=== PATIENT | female | born 1970 | race Caucasian/White ===

== ENCOUNTER → 2017-03-29 16:44 | Outpatient (CLI) | payer MEDICAID, SELFPAY ==
[2017-04-03 12:07] LABS: Alternaria alternata <0.10 kU/L (Class 0); Aspergillus fumigatus <0.10 kU/L (Class 0); Bahia Grass <0.10 kU/L (Class 0); Bermuda Grass <0.10 kU/L (Class 0); Bluegrass, Kentucky <0.10 kU/L (Class 0); Cat Hair/Dander, Standard <0.10 kU/L (Class 0); Cedar, Mountain <0.10 kU/L (Class 0); Cladosporium herbarum <0.10 kU/L (Class 0); Cockroach, American <0.10 kU/L (Class 0); D farinae Mite 6.34 kU/L (Class IV); D pteronyssinus 8.91 kU/L (Class IV); Dog Epithelia <0.10 kU/L (Class 0); Elm, American White <0.10 kU/L (Class 0); Hazelnut Tree <0.10 kU/L (Class 0); Hickory, White <0.10 kU/L (Class 0); Johnson Grass <0.10 kU/L (Class 0); Maple/Box Elder <0.10 kU/L (Class 0); Mucor racemosus <0.10 kU/L (Class 0); Mugwort <0.10 kU/L (Class 0); Mulberry, White <0.10 kU/L (Class 0); Oak, White <0.10 kU/L (Class 0); Penicillium chrysogen <0.10 kU/L (Class 0); Pigweed, Rough <0.10 kU/L (Class 0); Plantain, English <0.10 kU/L (Class 0); Ragweed, Short/Common <0.10 kU/L (Class 0); Sheep Sorrel(Dock) <0.10 kU/L (Class 0); Stemphylium herbarum <0.10 kU/L (Class 0); Sweet Gum <0.10 kU/L (Class 0); Sycamore, American <0.10 kU/L (Class 0)
[2017-04-04 08:50] LABS: Nettle <0.10 kU/L (Class 0)
== END ==
PROVIDERS: Family Provider Family Medicine; PCP Family Medicine; Visit Provider Family Medicine
DX: T78.40XA Allergy, unspecified, initial encounter (principal)
CPT/HCPCS: 36415; 86003

== ENCOUNTER → 2017-05-24 09:59 | Outpatient (CLI) | payer MEDICAID, SELFPAY ==
--- NOTE | 2017-05-24 10:14 | BI_ITS ---
MAMMOGRAPHY - BILATERAL SCREENING REASON FOR EXAM: Female, 46 years old. Routine annual screening examination. PERTINENT HISTORY: Mother with breast cancer. Grandmother with breast cancer. TECHNIQUE: Digital bilateral breast danial (3D mammographic acquisition) in the CC and MLO projections. 2-D mediolateral oblique (MLO) and craniocaudad (CC) views of both breasts were obtained. CAD: Full Field Digital Mammography with Computer Added Detection was performed. COMPARISON: Comparison is made with prior study dated June 26, 2015 and June 06, 2014. FINDINGS: Breast Composition: There are scattered areas of fibroglandular density. There are no dominant masses or suspicious calcifications. Stable benign-appearing left axillary lymph nodes. No other significant abnormalities are identified. There has been no significant change since the prior study. BI/SCREENING MAMM (CAD), BILAT IMPRESSION: Stable bilateral screening mammogram. Yearly follow-up mammogram recommended. (A) ASSESSMENT CATEGORY: BIRADS Category 2: Benign. A letter regarding these results will be sent to the patient by the facility within 30 days. Approximately 10% of breast cancers are not detected by mammography. A normal mammogram should not delay biopsy of a clinically suspicious abnormality. [id number] Electronically Signed: Jeremiah Gill MD at 12:16 EDT Tel [phone], Service support ,
[2017-05-26 13:48] LABS: HPV Reflexed? NOT INDICATED
== END ==
PROVIDERS: Visit Provider Obstetrics & Gynecology
DX: Z12.4 Encounter for screening for malignant neoplasm of cervix (principal); Z12.31 Encounter for screening mammogram for malignant neoplasm of breast
CPT/HCPCS: 77063; 77067; 88175; G0145

== ENCOUNTER → 2018-11-28 12:39 | Outpatient (CLI) | payer OTHER, SELFPAY ==
[2018-11-28 11:26] VITALS: BMI 37.5
[2018-11-28 12:57] LABS: Absolute Lymphocyte Count 2.92 X10^3/uL (0.83-4.51); Absolute Neutrophil Count 4.4 X10^3/uL (2.0-7.7); Basophil# 0.05 X10^3/uL; Basophil% 0.6 % (0-1); Eosinophil# 0.13 X10^3/uL; Eosinophils% 1.6 % (0-5); Hematocrit 43.7 % (37-47); Lymphocyte # 2.92 X10^3/ul (4.0); Lymphocyte % 37.1 % (19-41); Mean Corpuscular Hgb 27.7 pg (27.0-32.0); Mean Corpuscular Volume 86.5 fL (81-99); Mean Platelet Vol. 10.2 fl (6.2-12.0); Monocyte# 0.38 X10^3/uL; Monocyte% 4.8 % (0-10); NRBC Flagged by Analyzer 0 % (0-5); Neutrophil # 4.38 X10^3/uL (2.7-7.7); Neutrophil % 55.6 % (47-70); Platelet Count 256 K/mm3 (150-450); RBC Distribution Width CV 13.9 % (11.6-14.6); RBC Distribution Width SD 44.1 fl (35.1-43.9); Red Blood Count 5.05 M/mm3 (4.2-5.4); White Blood Count 7.9 K/mm3 (4.4-11.0)
[2018-11-28 13:40] LABS: Vitamin D,25 Hydroxy 16.5 ng/mL (29.95-100.01)
[2018-11-28 13:45] LABS: ALB/GLOB Ratio 0.9 RATIO (0.9-2.4); AST(SGOT) 24 U/L (15-37); Alanine Aminotransfer ALT/SGPT 45 U/L (13-56); Albumin, Serum 3.7 g/dL (3.2-5.0); Alkaline Phosphatase 84 U/L (45-117); Anion Gap 5 (5-15); BUN 13 mg/dL (7-18); Calcium,Total 9.1 mg/dL (8.5-10.1); Chloride 108 mmol/L (98-107); Cholesterol 192 mg/dL (200); Creatinine, Serum 0.76 mg/dL (0.55-1.02); EST Glomerular Filtration Rate 86 mL/min (>60); Est Glom Filt Rate - Afr Amer 104 mL/min (>60); Globulin 3.9 g/dL (2.2-4.2); Glucose 81 mg/dL (74-106); High Density Lipoprotein 64 mg/dL; Potassium 3.9 mmol/L (3.5-5.1); Protein, Total 7.6 g/dL (6.4-8.2); Sodium Level 139 mmol/L (136-145); Thyroid Stim Hormone (TSH) 1.36 uIU/mL (0.358-3.74); Triglycerides 132 mg/dL; Very Low Density Lipoprotein 26 mg/dL (5-40)
== END ==
PROVIDERS: Family Provider Family Medicine; PCP Family Medicine; Referring Provider Obstetrics & Gynecology; Visit Provider Obstetrics & Gynecology
DX: Z01.411 Encounter for gynecological examination (general) (routine) with abnormal findings (principal); D64.9 Anemia, unspecified; Z13.29 Encounter for screening for other suspected endocrine disorder; Z13.21 Encounter for screening for nutritional disorder
CPT/HCPCS: 36415; 80053; 80061; 82306; 84443; 85025

== ENCOUNTER → 2018-12-06 | Outpatient (CLI) | payer OTHER, SELFPAY ==
[2018-11-28 11:26] VITALS: BMI 37.5
--- NOTE | 2018-12-06 07:41 | US_ITS ---
STUDY: ULTRASOUND OF THE FEMALE PELVIS - COMPLETE REASON FOR EXAM: Female, 48 years old. Abnormal uterine bleeding. LMP: November 21, 2018. TECHNIQUE: Transabdominal and Transvaginal TECHNICAL QUALITY: Adequate. COMPARISON: None. FINDINGS: The uterus is anteverted and is in a midline position. The uterus measures 11.11 cm x 5 cm x 3.4 cm. There is are Nabothian cysts of the cervix. The endometrium measures 10.0 mm in thickness, and is hyperechoic. There is no demonstrated endometrial mass. The uterus is of heterogeneous echotexture. I suspect an 8 mm x 8 mm x 8 mm fibroid in the fundal portion. I.U.D. - The patient does not have an I.U.D. The right ovary is visualized. The right ovary measures 2.1 cm x 2.1 cm x 1.3 cm. There is no right ovarian cyst or ovarian mass. There is no visualized right adnexal mass or complex lesion. There is normal arterial and normal venous vascularity. The left ovary is non-visualized. There is no fluid in the cul-de-sac. Polycystic ovary disease: No. US/Pelvic (Non ) IMPRESSION: Enlarged fibroid uterus. Electronically Signed: Jeremiah Gill, at 11:00 EDT , Service support ,
== END | disposition home or self-care (01) ==
LOC: OPUS 07:39
PROVIDERS: Family Provider Family Medicine; PCP Family Medicine; Referring Provider Nurse Practitioner Women's Health; Visit Provider Nurse Practitioner Women's Health
DX: N93.9 Abnormal uterine and vaginal bleeding, unspecified (principal)
CPT/HCPCS: 76830; 76856; 93976

== ENCOUNTER → 2018-12-12 07:47 | Outpatient (CLI) | payer OTHER, SELFPAY ==
[2018-11-28 11:26] VITALS: BMI 37.5
--- NOTE | 2018-12-12 07:49 | BI_ITS ---
MAMMOGRAPHY - BILATERAL SCREENING REASON FOR EXAM: Female, 48 years old. Routine annual screening examination. PERTINENT HISTORY: Mother with breast cancer. Grandmother with breast cancer. TECHNIQUE: Digital bilateral breast chandrika (3D mammographic acquisition) in the CC and MLO projections. 2-D mediolateral oblique (MLO) and craniocaudad (CC) views of both breasts were obtained. CAD: Full Field Digital Mammography with Computer Added Detection was performed. COMPARISON: Comparison is made with prior study May 24, 2017 and June 26, 2015. FINDINGS: Breast Composition: There are scattered areas of fibroglandular density. There are no dominant masses or suspicious calcifications. Stable benign-appearing left axillary lymph nodes. No other significant abnormalities are identified. There has been no significant change since the prior study. BI/SCREEN MAMM (CAD) W/CHANDRIKA BILAT IMPRESSION: Stable bilateral screening mammogram. Yearly follow-up mammogram recommended. (A) ASSESSMENT CATEGORY: BIRADS Category 2: Benign. A letter regarding these results will be sent to the patient by the facility within 30 days. Approximately 10% of breast cancers are not detected by mammography. A normal mammogram should not delay biopsy of a clinically suspicious abnormality. [id number] Electronically Signed: Jeremiah Gill, at 9:42 EST , Service support ,
--- NOTE | 2018-12-12 16:40 | EMB_PTH ---
PATIENT: ZHENG WELCH LOC: [facility] U#:[id number] AGE/SX: 54/F ROOM: RE12/12/[address]: MICHAEL Pinto : 1970 BED: DIS: SPEC #: [id number] RECD: 12/12/18 17:01 STATUS: CHINTAN HARVEY #: [id number] ALICE: 12/12/18 16:[address]: Shelby Peña NP DEPT: SURGICAL PATHOLOGY RECD BY: Tung Salas ENTERED: 12/13/18 07:41 SP TYPE: ENDOM BX/C ZEESHAN DR: Dr. Ulices Hanson MD Tissues: Endometrium, NOS Procedures: Surgery Specimen Level IV HEADER OPERATION: Endometrial biopsy PRE-OP DIAGNOSIS: Abnormal uterine bleeding TISSUE SUBMITTED: Endometrial lining MICROSCOPIC DIAGNOSIS Endometrial biopsy: Secretory endometrium. SJ:wandy 12/14/18 MICROSCOPIC DESCRIPTION Slides are reviewed. GROSS DESCRIPTION Received is one container labeled with the patient's name and not further designated. The specimen consists of multiple irregular fragments of stoll-pink soft tissue that in aggregate measure 1.5 x 1 x 0.1 cm. The specimen is totally submitted in one cassette. / SJ:wandy 12/13/18 TC:4 CPT: 67250
== END ==
PROVIDERS: Family Provider Family Medicine; PCP Family Medicine; Referring Provider Nurse Practitioner Women's Health; Visit Provider Nurse Practitioner Women's Health
DX: N85.8 Other specified noninflammatory disorders of uterus (principal); N93.9 Abnormal uterine and vaginal bleeding, unspecified; Z12.31 Encounter for screening mammogram for malignant neoplasm of breast
CPT/HCPCS: 77063; 77067; 88305

== ENCOUNTER 2019-02-03 10:21 | Day surgery (SDC) | payer OTHER, SELFPAY ==
[2018-12-12 15:34] VITALS: BMI 37.5
[2019-01-25 12:39] VITALS: BMI 37.5
[2019-02-03] VITALS (13 sets, daily range): BP systolic 118–152; BP diastolic 67–93; PULSE 64–82; RESP 15–18; TEMP 36.2–37.1; O2SAT 92–100; BMI 39.2
[2019-02-03 10:51] LABS: Hematocrit 39.6 % (37-47); Mean Corp Hgb Conc 32.8 g/dL (32-36); Mean Corpuscular Hgb 28.1 pg (27.0-32.0); Mean Corpuscular Volume 85.5 fL (81-99); Mean Platelet Vol. 9.9 fl (6.2-12.0); Platelet Count 249 K/mm3 (150-450); RBC Distribution Width CV 13.6 % (11.6-14.6); RBC Distribution Width SD 42.2 fl (35.1-43.9); Red Blood Count 4.63 M/mm3 (4.2-5.4); White Blood Count 7.9 K/mm3 (4.4-11.0)
[2019-02-03 10:51] LABS: Bedside Glucose 86 mg/dL (70-110)
--- NOTE | 2019-02-03 10:54 | HP.PCM_ITS ---
- Problem List (1) Climacteric Status: Acute (2) Abnormal uterine bleeding Status: Chronic Comment: emb and workup done- plan LAVH bs cysto. 11 cm uterus. h/o scar tissue History and Physical Date of Admission: 02/03/19 Intake Vital Signs 01/25/19 Height 5 ft 2 in 01/25/19 Weight: 217 lb 01/25/19 BMI 39.6 01/25/19 BP 110/82 H Intake Visit Reasons: ERAS LAVH BS CYSTO PRE OP Chief Complaint: Pre Op LAVH BS Cysto Electronic Equipment Repairmen Required: No Is patient in pain?: No Allergies meperidine HCl [From Demerol] Allergy (Verified 01/25/19 12:38) Rash minocycline [Minocycline] Allergy (Verified 01/25/19 12:38) Other pseudoephedrine HCl [From Sudafed] Allergy (Verified 01/25/19 12:38) Rash Medications NK 12/12/18 [History Confirmed 01/25/19] Is last menstrual period known: No Post menopausal: No Patient : No : No [facility] History Abdominal adhesions (Acute) Allergic rhinitis (Acute) Elevated transaminase level (Acute) Impaired glucose tolerance (oral) (Acute) Obesity (Acute) Ovarian cyst (Acute) Palpitations (Acute) Surgical History delivery delivered (Acute) H/O laparoscopy (Acute) Hx laparoscopic cholecystectomy (Acute) Family History Mother Breast cancer COPD (chronic obstructive pulmonary disease) Grandmother Breast cancer Father Heart disease Prostate cancer Social History (Updated 01/25/19 @ 13:25 by Daphne Kumar MD) Smoking Status: Never smoker alcohol intake: never substance use type: does not use caffeine: Yes what type of physical activity do you participate in: none seatbelt use: always do you feel safe at home: Yes additional social history: single- [employer] HPI ERAS LAVH BS CYSTO PRE OP: Details: ZHENG WELCH is a 48 year old who presents for preop visit, she has had AUB and climacteric symptoms. Female Reproductive History Questions: Metorrhagia: No, Sexually active: Yes Pregancy History 1 Elective abortions Hx Para 1 Spontaneous abortions Hx # Term Pregnancies Ectopic pregnancies Hx # Pregnancies Multiple births # of living children Past Pregnancies Del. Date Name GA/Weeks Outcome Route Bth Weight Infant Gen Labor Lgth Anesthesia Del [facility] Provider FOB Unknown 1998 Elvis 37 live - full term C- section Male ROS Const Constitutional: Denies fatigue, fever(s), headache(s), increased appetite, poor appetite, weight gain or weight loss Cardio Card: Denies chest pain Resp Resp: Denies cough or dyspnea GI GI: Reports as per HPI; denies abdominal pain, constipation, nausea or vomiting : Reports as per HPI; denies difficulty urinating, painful urination, nipple discharge, urinary frequency, urinary incontinence, urinary hesitancy, urinary urgency, vaginal discharge, vaginal dryness, vaginal odor or vaginal itching Skin Skin/Breast: Denies nipple discharge Exam Const General: cooperative, healthy appearing, comfortable, no acute distress, well developed Nutritional Appearance: average body habitus Orientation: alert HENMT Head: normal to inspection, normocephalic Neck Neck: normal visual inspection, trachea midline Thyroid: thyroid normal Resp Effort & Inspection: normal respiratory effort GI Inspection: normal to inspection, non-distended Palpation: soft, no hepatosplenomegaly General: bladder normal to palpation External Female Exam: normal external appearance, normal appearance of the urethra Urethra: normal appearance of the urethra Speculum Exam - Vagina: normal appearance of the vagina, normal vaginal discharge Speculum Exam - Cervix: normal appearance of the cervix, nontender Bimanual Exam- Vagina & Uterus: bladder normal to palpation, No cervical tenderness Bimanual Exam- Adnexa, other: normal adnexae, adnexae mobile, no adnexal masses, pelvic support normal Pelvic Support: normal Skin General: no rashes or lesions noted Assessment & Plan Problems 1. Abnormal uterine bleeding N93.9 emb and workup done- plan LAVH bs cysto. 11 cm uterus. h/o scar tissue 2. Climacteric N95.1 Plan After discussing the patient's diagnosis and treatment plan options, patient wishes to proceed with surgical management. I have discussed with the patient the risks, benefits, and alternatives of the procedure which include but are not limited to risks of anesthesia, bleeding, infection, possible damage to bowel, bladder, or surrounding vasculature which could lead to additional surgery to evaluate any complications. Patient agrees to procedure and wishes to proceed. ACOG/uptodate references given for additional information regarding procedure. Coding Level of Care Code No Charge Diagnoses Abnormal uterine bleeding N93.9 Climacteric N95.1 UPDATE- I have seen the patient and performed any clinically relevant updates t o the history and physical exam. Daphne Kumar MD
[2019-02-03 10:56] LABS: Internal QC Validated? YES +Cl - CLEAR BKGD; Pregnancy, Urine Negative Negative
[2019-02-03] MEDS: Acetaminophen 500 MG Tablet 1000 MG PO ×2 (11:07→17:44)
[2019-02-03] MEDS: Gabapentin 600 MG Tablet PO (11:08)
[2019-02-03] MEDS: Scopolamine 1mg/72hr Patch 1 PATCH TRANSDERM. (11:08)
[2019-02-03] MEDS: Phenazopyridine 95 MG Tablet 190 MG PO (11:09)
[2019-02-03] MEDS: Celecoxib 200 MG Capsule 400 MG PO (11:09)
[2019-02-03] MEDS: Lactated Ringers 1,000 ML 40 ML IV (11:13)
[2019-02-03] MEDS: Magnesium Sulfate 4gm/100mL 4 GM/100 ML IV.SOLN. IV (11:20)
[2019-02-03] MEDS: dexAMETHasone 10 MG/ML Vial 8 MG IV (11:20)
--- NOTE | 2019-02-03 12:30 | HYST_PTH ---
PATIENT: ZHENG WELCH LOC: [facility] U#:[id number] AGE/SX: 48/F ROOM: RE02/03/[address]: Dr. Daphne Kumar MD : 1970 BED: DIS: 02/04/2019 SPEC #: [id number] RECD: 02/03/19 15:50 STATUS: CHINTAN HARVEY #: [id number] ALICE: 02/03/19 12:[address]: Daphne Kumar DEPT: SURGICAL PATHOLOGY RECD BY: Kirstie Syed ENTERED: 02/06/19 10:14 SP TYPE: HYSTERECT OTHR DR: Dr. Ulices Hanson MD Tissues: Uterus, NOS Procedures: Surgery Specimen Level V HEADER OPERATION: ERAS, lap assisted vaginal hysterectomy, bilateral salpingectomy PRE-OP DIAGNOSIS: Abnormal uterine bleeding TISSUE SUBMITTED: Uterus, bilateral fallopian tubes MICROSCOPIC DIAGNOSIS Uterus, hysterectomy: Cervix - nabothian cysts, squamous metaplasia and mild chronic inflammation. Endometrium - proliferative endometrium. Myometrium - adenomyosis. Right and left fallopian tubes - vascular congestion. AM:wandy 02/07/19 MICROSCOPIC DESCRIPTION Slides are reviewed. GROSS DESCRIPTION Received in fixative is one container labeled with the patient's name and designated uterus. The specimen consists of a uterus with attached cervix and attached right and left fallopian tubes. The uterus with cervix measures 11.5 x 5 x 4 cm and weighs 76.5 gm. The ectocervix is oval and grossly unremarkable. The endocervical canal measures 4.5 cm in length and is grossly unremarkable. The elongated endometrial cavity measures 3 x 2 cm. The reddish-stoll endometrium measures up to 0.2 cm in thickness. The myometrial wall measures 2 cm in average thickness and is free of mass lesions. The right and left fallopian tubes are similar in appearance, each with an average length of 4 cm and maximal diameters of 0.6 cm. Sand Cutting Machine Operator sections are submitted in ten cassettes as follows: 1 - anterior cervix, 2 - posterior cervix, 3-5 - anterior endometrium and myometrium, 6-8 - posterior myometrium/ endometrium, 9 - right fallopian tube, 10 - left fallopian tube. / AM:wandy 02/06/19 TC:5 CPT: 11835
--- NOTE | 2019-02-03 13:37 | PCM.OPRPT ---
Problem List (1) Climacteric Status: Acute (2) Abnormal uterine bleeding Status: Chronic Comment: emb and workup done- plan LAVH bs cysto. 11 cm uterus. h/o scar tissue Report of Operation Date of Procedure: 02/03/19 Pre-Operative Diagnosis: aub Post-Operative Diagnosis: same endomteriosis Surgery/Procedure Performed:: lavh bs cysto Description of Surgical Findings:: thick rectosigmoid to posterior uterine adhesion, left simple ovarian cyst reed or wind instrument tuner: Jannet Gould reed or wind instrument tuner: Benjamin Champagne Type of Anesthesia:: General Special Medications: baudilio Specimen's removed: uterus tubes Drains: vasquez Estimated Blood Loss (mL): 150 Fluids Replaced: crystalloid Description of Procedure: Patient received preoperative antibiotics and SCDs were on preoperatively. Patient was taken back to the operating room and placed in the dorsal lithotomy position. General anesthesia was induced and patient was prepped and draped in normal sterile fashion. Uterine manipulator was placed inside the uterus and Vasquez catheter placed in the bladder. The umbilicus was grasped with towel clamps and an intraumbilical incision was made after injecting with quarter percent Marcaine and a Veress needle entered into the abdomen confirmed to be intra-abdominal with a low opening pressure. Abdomen was insufflated with CO2 gas and the Veress needle removed and the 5 mm trocar was placed under direct visualization without complication. Right and left lower quadrants were transilluminated and injected with quarter percent Marcaine and 5 mm ports placed under direct visualization. Pelvis was well visualized see operative findings for additional information. Bilateral fallopian tubes were identified and transected with the LigaSure device across the mesosalpinx to the level of the utero-ovarian ligament which was also transected with the LigaSure device. The broad ligament was opened up by transecting the round ligament bilaterally and skeletonizing the uterine vessels bilaterally and creating a bladder flap using the LigaSure device. extensive bladder dissection was made due to adhesions, and rectosigmoid to posterior uterine adhesions were taken down with the ligasure, and hydrodissection was used for all dissectionalso. left ovarian cyst was noted that was opened and noted to be hemorrhagic. The uterine arteries were transected bilaterally with good visualization of the bladder and the ureters were seen to be inferior lateral to the operative area. Attention was then paid to the vaginal portion of the procedure and the cervix was grasped with Abdullahi clamps and circumferentially injected with dilute vasopressin. A circumferential incision was made and the vaginal mucosa was mobilized off posteriorly and the cul-de-sac entered into sharply and a longneck speculum placed. The anterior cul-de-sac was then identified and entered into sharply. The uterosacral ligaments were clamped cut and suture ligated with 0 Monocryl bilaterally followed by the cardinal ligaments which were clamped cut and suture ligated bilaterally with 0 Monocryl. The uterus serially descended and was removed without difficulty without any morcellation. Pelvic sidewall pedicles were checked and noted to have excellent hemostasis. The vaginal mucosa was reapproximated incorporating the posterior peritoneum. This was reapproximated using 0 Vicryl [id number] sutures. Excellent hemostasis was noted. The cystoscopy was then performed and bilateral ureteral strong spray was noted and the bladder was noted to have no abnormality or lesions seen. Vasquez catheter was replaced and then attention paid to the abdominal portion of the procedure again. The pelvis and cul-de-sac was well visualized and no significant active bleeding noted but some raw areas were seen on the peritoneum and therefore Baudilio was applied. Pressure was taken down and the areas visualized and noted of excellent hemostasis. All ports were removed under direct visualization without complication and the abdomen was desufflated of air. The instruments removed from the abdomen and the vagina vaginal sweep was negative. Port sites on the abdomen were closed with 4-0 Monocryl interrupted sutures and Steri's and windows were applied. She was awoken and taken recovery in stable condition. Grafts/Implants Used: none - Complications none - Admit VTE Documentation VTE Present on Admission: No VTE Mechan Device Prophylaxis: SCD's Multi Select Codes - Urinary/Genital Urinary/Genital CPT Codes: 12045 Cystoscopy, 07457 LAVH+BS/O <250gr Uterus
[2019-02-03] MEDS: Cefazolin 2 GM in 0.9% Normal Saline 100 ML IV (13:40)
--- NOTE | 2019-02-03 13:40 | PCM.DC.VHY ---
Discharge Diet: No Restrictions Discharge Activity: Return to Normal Activity, May Not Drive, May Shower May resume sexual activity in: 6-8 weeks Call your doctor if your incision/area has: Continuous Slow Oozing, Sudden Increased Bleeding, Increased Pain/ Swelling, Increased Redness, Foul Smelling Discharge Call your doctor if you observe: Fever of 101 or Higher, Inability to urinate, Inability to have a bowel movement, Using more than one pad per hour Allergies/Adverse Reactions: Allergies meperidine HCl [From Demerol] Allergy (Verified 02/03/19 10:42) Rash minocycline [Minocycline] Allergy (Verified 02/03/19 10:42) Other pseudoephedrine HCl [From Sudafed] Allergy (Verified 02/03/19 10:42) Rash Medications to take at Discharge Cholecalciferol (Vitamin D3) [Vitamin D3] 2,000 unit PO DAILY 01/27/19 Naproxen [Naprosyn] 250 - 500 mg PO Q8H PRN PRN #30 tab 02/03/19 Oxycodone HCl/Acetaminophen [Percocet 5-325] 1 - 2 tablet PO Q6H PRN PRN 7 Days #15 tablet 02/03/19 The following prescriptions were given: Naproxen [Naprosyn] 250 - 500 mg PO Q8H PRN PRN #30 tab PRN Reason: MILD PAIN Transmission Status: Pending to [facility] Oxycodone HCl/Acetaminophen [Percocet 5-325] 1 - 2 tablet PO Q6H PRN PRN 7 Days #15 tablet PRN Reason: Pain Transmission Status: Sent to [facility] Primary Care Physician: Ulices Hanson MD [Primary Care Provider] - Test Results: Test results from this visit will be discussed in further detail at your follow-up appointment, if applicable. Please Follow Up With: Daphne Kumar MD - [phone]
[2019-02-03] MEDS: Vasopressin 20 UNITS/ML Vial (14:45)
[2019-02-03] MEDS: Bupivacaine 0.25% 30 ML Vial (15:15)
[2019-02-03] MEDS: Ondansetron 4 MG/2 ML Vial IV (15:27)
[2019-02-03] MEDS: Ketorolac 30 MG/ML Syringe IV (16:55)
[2019-02-03] MEDS: Lactated Ringers 1,000 ML 70 ML IV (17:44)
[2019-02-03] MEDS: oxyCODONE 5 MG Tablet PO (19:55)
[2019-02-03] MEDS: Docusate Sodium 100 MG Capsule PO (21:44)
[2019-02-04] MEDS: 0.9% Saline Lock 10 ML Syringe IV ×2 (00:12→05:18)
[2019-02-04] MEDS: Acetaminophen 500 MG Tablet 1000 MG PO ×3 (00:12→12:08)
[2019-02-04] MEDS: Ketorolac 30 MG/ML Syringe IV ×3 (00:12→12:08)
[2019-02-04 03:30] VITALS: BP 142/79; PULSE 75; RESP 16; TEMP 36.7; O2SAT 95
--- NOTE | 2019-02-04 05:54 | PCM.PN.OB ---
Subjective: patient recovering well, denies CP, SOB, N, or V. patient is ambulating with assistance, tolerating adequate po, and pain is controlled with oral medications. having some dizziness - Physical Exam Vitals/I&O's: Vital Signs Temp Pulse Resp BP Pulse Ox 98.1 F 75 16 142/79 H 95 02/04/19 03:30 02/04/19 03:30 02/04/19 03:30 02/04/19 03:30 02/04/19 03:30 Oxygen Flow Rate (L/min) 6 Oxygen Delivery Method Room Air Weight: 214 lb 11.684 oz Body Mass Index (BMI) 39.2 Intake and Output for Last 24 Hours 02/02/19 02/03/19 02/04/19 23:59 23:59 23:59 Intake Total 1977. / 1977. 1014.33 / 1014.33 Output Total 1100 / 1100 500 / 500 Balance 878.31 / 878.31 514.33 / 514.33 General: Alert, Oriented x3 Laboratory Results 02/03/19 10:34: WBC 7.9, RBC 4.63, Hgb 13.0, Hct 39.6, MCV 85.5, MCH 28.1, MCHC 32.8, RDW Std Deviation 42.2, RDW Coeff of Yared 13.6, Plt Count 249, MPV 9.9 02/03/19 10:34: Blood Type A POSITIVE, Antibody Screen NEGATIVE 02/03/19 10:35: Urine Test Negative 02/03/19 10:47: POC Glucose 86 Current Medications Acetaminophen (Tylenol) 1,000 mg PO Q6 [facility] Last Admin: 02/04/19 05:18 Dose: 1,000 mg Documented by: Docusate Sodium (Colace) 100 mg PO BID [facility] Last Admin: 02/03/19 21:44 Dose: 100 mg Documented by: Enoxaparin Sodium (Lovenox) 40 mg SC DAILY [facility]1983 Ketorolac Tromethamine (Toradol) 30 mg IV Q6 [facility]1983 Stop: 02/05/19 00:01 Last Admin: 02/04/19 05:18 Dose: 30 mg Documented by: Magnesium Oxide (Mag-Ox 400) 400 mg PO DAILY PRN PRN PRN Reason: Constipation Nutritional Formula (Lactose Free) (Ensure Enlive) 120 ml PO TIDCM [facility]1983 Ondansetron HCl (Zofran Odt) 4 mg PO Q6H PRN PRN PRN Reason: NAUSEA Oxycodone HCl (Oxyir) 5 - 10 mg PO Q4H PRN PRN PRN Reason: Pain Score 4-10/10 Last Admin: 02/03/19 19:55 Dose: 5 mg Documented by: Sodium Chloride () 10 - 40 ml IV UD PRN PRN Reason: SALINE FLUSH Last Admin: 02/04/19 05:18 Dose: 10 ml Documented by: Medical Necessity - Tobacco Use Smoking Status: Never smoker Tobacco Use: Non-smoker Assessment/Plan All Active Problems (Last Reviewed 01/25/19 @ 12:39 by Mayra Mancilla) Climacteric (Acute) [facility] 1. routine ERAS protocol postop care- increase ambulation, encourage oral intake and oral control of pain. lovenox and scds for dvt prophylaxis, patient stable for discharge to home.
[2019-02-04 07:09] VITALS: O2SAT 89
[2019-02-04 07:16] LABS: Hematocrit 37.5 % (37-47); Hemoglobin 12.1 g/dL (12.0-15.0); Mean Corp Hgb Conc 32.3 g/dL (32-36); Mean Corpuscular Hgb 27.5 pg (27.0-32.0); Mean Corpuscular Volume 85.2 fL (81-99); Mean Platelet Vol. 10.4 fl (6.2-12.0); Platelet Count 246 K/mm3 (150-450); RBC Distribution Width CV 13.7 % (11.6-14.6); RBC Distribution Width SD 42.6 fl (35.1-43.9)
[2019-02-04 08:49] VITALS: BP 140/74; PULSE 71; RESP 18; TEMP 37.2; O2SAT 97
[2019-02-04] MEDS: oxyCODONE 5 MG Tablet PO (08:49)
[2019-02-04] MEDS: Enoxaparin 40 MG/0.4 ML Syringe SC (10:02)
[2019-02-04] MEDS: Docusate Sodium 100 MG Capsule PO (10:02)
[2019-02-04 12:26] VITALS: BP 140/80; PULSE 82; RESP 18; TEMP 36.7; O2SAT 99
== END 2019-02-04 12:55 | disposition home or self-care (01) ==
LOC: SDC 10:21 → AC 10:22 → MS3 14:34
PROVIDERS: Family Provider Family Medicine; PCP Family Medicine; Referring Provider Obstetrics & Gynecology; Visit Provider Obstetrics & Gynecology
PROC: 0UT9FZZ Resection of Uterus, Via Natural or Artificial Opening With Percutaneous Endoscopic Assistance (ICD-10-PCS; CPT 52000; principal; 2019-02-03 12:10)
DX: N88.8 Other specified noninflammatory disorders of cervix uteri (principal); N72 Inflammatory disease of cervix uteri; N80.0 Endometriosis of uterus; N93.9 Abnormal uterine and vaginal bleeding, unspecified; N83.202 Unspecified ovarian cyst, left side; Z79.1 Long term (current) use of non-steroidal anti-inflammatories (NSAID); Z79.899 Other long term (current) drug therapy; Z88.5 Allergy status to narcotic agent; E66.9 Obesity, unspecified; N95.1 Menopausal and female climacteric states; Z68.39 Body mass index [BMI] 39.0-39.9, adult
CPT/HCPCS: 52000; 58552; 36415; 81025; 82962; 85027; 86850; 86900; 86901; 88307; 99251; J7120; A4216; G0463; J2405

== ENCOUNTER → 2019-12-08 | Outpatient (CLI) | payer OTHER, SELFPAY ==
[2019-03-20 13:02] VITALS: BMI 39.2
== END | disposition home or self-care (01) ==
PROVIDERS: PCP Family Medicine; Referring Provider Family Medicine; Visit Provider Family Medicine
DX: Z20.828 Contact with and (suspected) exposure to other viral communicable diseases (principal)
CPT/HCPCS: 87635; U0003

== ENCOUNTER → 2021-09-22 | Outpatient (CLI) | payer OTHER, SELFPAY ==
[2021-09-22 12:33] LABS: Vitamin D,25 Hydroxy 19.8 ng/mL
[2021-09-22 12:34] LABS: Hemoglobin A1c 5.6 % (3.8-5.6)
[2021-09-22 13:11] LABS: ALB/GLOB Ratio 0.9 RATIO (0.9-2.4); AST(SGOT) 26 U/L (15-37); Alanine Aminotransfer ALT/SGPT 55 U/L (13-56); Albumin, Serum 3.7 g/dL (3.2-5.0); Alkaline Phosphatase 94 U/L (45-117); Anion Gap 6 (5-15); BUN 10 mg/dL (7-18); BUN/Creat Ratio 12.3 RATIO (10-20); Calcium,Total 9.4 mg/dL (8.5-10.1); Chloride 106 mmol/L (98-107); Cholesterol 209 mg/dL (200); Creatinine, Serum 0.81 mg/dL (0.55-1.02); EST Glomerular Filtration Rate 79 mL/min (>60); Est Glom Filt Rate - Afr Amer 96 mL/min (>60); Globulin 4.2 g/dL (2.2-4.2); Glucose 82 mg/dL (74-106); High Density Lipoprotein 67 mg/dL; Protein, Total 7.9 g/dL (6.4-8.2); Sodium Level 141 mmol/L (136-145); Thyroid Stim Hormone (TSH) 1.22 uIU/mL (0.358-3.74); Triglycerides 127 mg/dL; Very Low Density Lipoprotein 25 mg/dL (5-40)
== END | disposition home or self-care (01) ==
LOC: LAB 10:35
PROVIDERS: PCP Family Medicine; Visit Provider Obstetrics & Gynecology
DX: E66.9 Obesity, unspecified (principal); Z13.1 Encounter for screening for diabetes mellitus; Z13.220 Encounter for screening for lipoid disorders; Z13.29 Encounter for screening for other suspected endocrine disorder; Z13.21 Encounter for screening for nutritional disorder
CPT/HCPCS: 36415; 80053; 80061; 82306; 83036; 84443

== ENCOUNTER → 2021-10-21 | Outpatient (CLI) | payer OTHER, SELFPAY ==
--- NOTE | 2021-10-21 08:19 | BI_ITS ---
MAMMOGRAPHY - BILATERAL SCREENING REASON FOR EXAM: Female, 51 years old. Routine annual screening examination. PERTINENT HISTORY: Mother with breast cancer. Grandmother with breast cancer. TECHNIQUE: Digital bilateral breast chandrika (3D mammographic acquisition) in the CC and MLO projections. 2-D mediolateral oblique (MLO) and craniocaudad (CC) views of both breasts were obtained. CAD: Full Field Digital Mammography with Computer Added Detection was performed. COMPARISON: Comparison is made with prior study dated 12/12/2018 and 05/24/2017. FINDINGS: Breast Composition: There are scattered areas of fibroglandular density. There are no dominant masses or suspicious calcifications. Stable benign appearing left axillary lymph nodes. No other significant abnormalities are identified. There has been no significant change since the prior study. BI/SCRN MAMM (CAD)W/CHANDRIKA BILAT IMPRESSION: Stable bilateral screening mammogram. Yearly follow-up mammogram recommended. (A) ASSESSMENT CATEGORY: BIRADS Category 2: Benign. A letter regarding these results will be sent to the patient by the facility within 30 days. Approximately 10% of breast cancers are not detected by mammography. A normal mammogram should not delay biopsy of a clinically suspicious abnormality. [id number] Electronically Signed: Jeremiah Gill MD at 10:17 EDT ,
== END | disposition home or self-care (01) ==
LOC: OPBI 08:18
PROVIDERS: PCP Family Medicine; Referring Provider Obstetrics & Gynecology; Visit Provider Obstetrics & Gynecology
DX: Z12.31 Encounter for screening mammogram for malignant neoplasm of breast (principal)
CPT/HCPCS: 77063; 77067